=== PATIENT | male | born 1950 | race African-American/Black ===

== ENCOUNTER 2017-02-17 18:26 | Inpatient (IN) | payer OTHER ==
[~2017-02-17] VITALS: Ht 167.6 cm; Wt 82.1 kg
--- NOTE | ~2017-02-17 | EKG ---
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
[~2017-02-17 18:26] MED LIST: ASPIRIN325 PO; FLEXERIL PO; HUMALOG100 UNIT/1; HYDROCHLOROTHIA25 M2 PO; LANTUS SUBQ; NIACIN500 MG PO; NORCO 5-325 TA1 EACH PO; NORVASC10 MG PO; PRINIVIL40 MG PO; VALIUM2 MG PO
[2017-02-17 18:28] VITALS: BP 110/58
[2017-02-17 19:49] LABS: ABSOLUTE NEUTROPHILS 8.9 thou/uL (1.4-8.2); BASOPHILS 0.5 % (0.0-2.0); EOSINOPHILS 0.2 % (0.0-3.0); HEMATOCRIT 41.7 % (42.0-52.0); MANUAL DIFF NO; MCH 30.2 pg (26.0-34.0); MCHC 33.6 g/dL (28.0-37.0); MCV 89.9 fL (80.0-100.0); MONOCYTES 4.8 % (1.0-8.0); PLATELET COUNT 286 thou/uL (150-400); POLYS 81.5 % (36.0-66.0); RBC 4.64 mil/uL (4.50-6.00); RDW 14.1 % (10.5-14.5); WBC 10.9 thou/uL (4.0-11.0)
[2017-02-17 20:02] LABS: ANION GAP 18 mmol/L (7-16); BUN 36 mg/dL (7-18); CALCIUM 9.4 mg/dL (8.5-10.1); CHLORIDE 88 mmol/L (98-107); CO2 24 mmol/L (21-32); CREATININE 1.7 mg/dL (0.7-1.3); POTASSIUM 4.5 mmol/L (3.5-5.1); SODIUM 130 mmol/L (136-145)
[2017-02-17 20:09] LABS: GLUCOSE 582 mg/dL (74-106)
[2017-02-17 20:10] LABS: ALKALINE PHOSPHATASE 96 U/L (46-116); MAGNESIUM 2.4 mg/dL (1.8-2.4); PHOSPHORUS 5.8 mg/dL (2.5-4.9); SGOT 27 U/L (15-37); SGPT 19 U/L (30-65)
[2017-02-17 20:11] LABS: ALBUMIN 3.9 g/dL (3.4-5.0); TOTAL PROTEIN 7.7 g/dL (6.4-8.2)
[2017-02-17 20:16] LABS: TROPONIN-I < 0.04 ng/mL (<0.04-0.07)
[2017-02-17 20:40] LABS: ABG SAMPLE TYPE ARTERIAL; BE(vivo) -0.3 mmol/L (-2 to +3); HCO3 23.3 mmol/L (22.0-26.0); O2(CT) 18.8 mL/dL (15.0-23.0); O2Hb 92.7 % (92.0-98.0); PCO2 35.3 mmHg (35.0-45.0); PO2 76.9 mmHg (80.0-100.0); pH 7.438 (7.360-7.450); sO2 95.9 % (92.0-98.0); tCO2 24.4 mmol/L (24.0-30.0)
[2017-02-17 20:41] LABS: LACTATE 4.05 mmol/L (0.5-2.0); STICK SITE R.RADIAL
[2017-02-17 21:51] LABS: URINE BLOOD NEGATIVE (Negative); URINE COLOR YELLOW; URINE GLUCOSE-RANDOM* 3+ (Negative); URINE KETONES 2+ (Negative); URINE NITRITE NEGATIVE (Negative); URINE PROTEIN (DIPSTICK) NEGATIVE (Negative); URINE SPECIFIC GRAVITY <= 1.005 (1.003-1.035); URINE UROBILINOGEN 0.2 E.U./dl (0.2-1.0)
[2017-02-17 21:54] LABS: ICTOTEST (BILI CONFIRMATORY) Negative (Negative); URINE BILIRUBIN NEGATIVE (Negative)
[2017-02-17 22:15] VITALS: BP 137/53
[2017-02-17 22:33] VITALS: BP 117/64
[2017-02-17 22:57] VITALS: BP 154/76
[2017-02-17 23:55] LABS: CALCIUM 8.9 mg/dL (8.5-10.1); CREATININE 1.7 mg/dL (0.7-1.3); POTASSIUM 3.9 mmol/L (3.5-5.1)
[2017-02-18 00:14] VITALS: BP 117/64
[2017-02-18 06:03] LABS: CALCIUM 8.6 mg/dL (8.5-10.1); CREATININE 1.4 mg/dL (0.7-1.3); MAGNESIUM 2.4 mg/dL (1.8-2.4); POTASSIUM 3.4 mmol/L (3.5-5.1)
[2017-02-18 07:27] VITALS: BP 119/58
[2017-02-18 09:15] VITALS: BP 119/58
[2017-02-18 11:00] VITALS: BP 119/58
[2017-02-19 04:12] LABS: GLYCOHEMOGLOBIN (HGB A1C) 9.3 % (4.8-5.6)
== END 2017-02-18 10:57 | disposition home or self-care (01) | DRG 682 ==
LOC: ER 18:26 → EROBS 21:30 → 2N 21:30
PROVIDERS: Nurse Practitioner Acute Care; Physician Assistant
DX: N17.9 Acute kidney failure, unspecified (principal); E13.10 Other specified diabetes mellitus with ketoacidosis without coma; I10 Essential (primary) hypertension; E78.5 Hyperlipidemia, unspecified; E86.0 Dehydration; I25.10 Atherosclerotic heart disease of native coronary artery without angina pectoris; F17.210 Nicotine dependence, cigarettes, uncomplicated; Z88.8 Allergy status to other drugs, medicaments and biological substances; Z95.5 Presence of coronary angioplasty implant and graft
CPT/HCPCS: 10081

== ENCOUNTER 2017-06-07 18:00 | Emergency (ER) | payer OTHER ==
[~2017-06-07] VITALS: Ht 165.1 cm; Wt 79.8 kg
[2017-06-07] MEDS ORDERED: AFRIN15 ML NASAL (18:45)
[2017-06-07] MEDS ORDERED: CORICIDIN HBP1 EAC1 PO (18:45)
[2017-06-07] MEDS ORDERED: VENTOLIN HFA 1818 GM INH (18:45)
[2017-06-07 20:14] VITALS: BP 141/77
[2018-02-03] MEDS ORDERED: CLEOCIN HCL150 MG PO (11:04)
[2018-02-03] MEDS ORDERED: ULTRAM 50MG TAB50 MG PO (11:04)
[2018-02-04] MEDS ORDERED: ZOFRAN ODT4 MG PO (21:24)
[2018-02-04] MEDS ORDERED: PENICILLIN V P500 MG PO (21:24)
[2018-02-04] MEDS ORDERED: SENNA8.6 MG PO (21:31)
== END 2017-06-07 19:30 | disposition home or self-care (01) ==
LOC: ER 18:00
DX: J40 Bronchitis, not specified as acute or chronic (principal); J00 Acute nasopharyngitis [common cold]; E11.9 Type 2 diabetes mellitus without complications; I10 Essential (primary) hypertension; E78.5 Hyperlipidemia, unspecified; I25.10 Atherosclerotic heart disease of native coronary artery without angina pectoris; Z79.4 Long term (current) use of insulin; Z77.22 Contact with and (suspected) exposure to environmental tobacco smoke (acute) (chronic)

== ENCOUNTER 2017-11-05 09:44 | Emergency (ER) | payer OTHER ==
[~2017-11-05] VITALS: Ht 170.2 cm; Wt 72.6 kg
--- NOTE | ~2017-11-05 | EKG ---
[place] [address] 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 : 1950 Requested By: Laverne Kidd Order Number: [id number] MD: Grant Ramires Measurements Intervals [place] Rate: 102 P: 63 ID: 184 QRS: 43 QRSD: 90 T: 49 QT: 330 QTc: 430 Interpretive Statements Sinus tachycardia Otherwise normal tracing Compared to ECG 02/17/2017 18:34:05 Heart rate has increased Electronically Signed On 11-06-2017 8:07:02 CDT by Grant Ramires [email or web address] <ELECTRONICALLY SIGNED> By: Grant Ramires MD, [facility] 11/06/17 0807 1004 1004 Grant Ramires MD, FACC /EPI
[~2017-11-05 09:44] MED LIST changes: +AFRIN15 ML NASAL; +CORICIDIN HBP1 EAC1 PO; +VENTOLIN HFA 1818 GM INH
[2017-11-05 10:18] LABS: ABSOLUTE NEUTROPHILS 7.3 thou/uL (1.4-8.2); BASOPHILS 0.8 % (0.0-2.0); EOSINOPHILS 0.8 % (0.0-3.0); HEMATOCRIT 42.2 % (42.0-52.0); HEMOGLOBIN 14.3 gm/dL (14.0-18.0); LYMPHOCYTES 17.8 % (24.0-44.0); MCH 30.1 pg (26.0-34.0); MCHC 33.8 g/dL (28.0-37.0); MONOCYTES 2.8 % (1.0-8.0); PLATELET COUNT 275 thou/uL (150-400); POLYS 77.8 % (36.0-66.0); RBC 4.74 mil/uL (4.50-6.00); RDW 13.7 % (10.5-14.5); WBC 9.4 thou/uL (4.0-11.0)
[2017-11-05 10:18] LABS: BE(vivo) -5.8 mmol/L (-2 to +3); HCO3 17.8 mmol/L (22.0-26.0); PCO2 VENOUS 29.9 mmHg (41.0-51.0); PO2 VENOUS 50.4 mmHg (35.0-45.0)
[2017-11-05 10:28] LABS: ANION GAP 16 mmol/L (7-16); BUN 32 mg/dL (7-18); CALCIUM 10.3 mg/dL (8.5-10.1); CHLORIDE 96 mmol/L (98-107); CO2 21 mmol/L (21-32); CREATININE 1.3 mg/dL (0.7-1.3); POTASSIUM 4.6 mmol/L (3.5-5.1); SODIUM 133 mmol/L (136-145)
[2017-11-05 10:33] LABS: LIPASE 73 U/L (73-393); SGOT 24 U/L (15-37); SGPT 21 U/L (30-65); TOTAL BILIRUBIN 0.8 mg/dL (<0.1-1.0); TOTAL PROTEIN 8.1 g/dL (6.4-8.2); TROPONIN-I < 0.04 ng/mL (<0.06)
[2017-11-05 10:34] LABS: GLUCOSE 568 mg/dL (74-106)
[2017-11-05 11:27] LABS: URINE BILIRUBIN NEGATIVE (Negative); URINE BLOOD NEGATIVE (Negative); URINE CLARITY CLEAR; URINE COLOR YELLOW; URINE GLUCOSE-RANDOM* 3+ (Negative); URINE KETONES 1+ (Negative); URINE LEUKOCYTES-REFLEX NEGATIVE (Negative); URINE NITRITE-REFLEX NEGATIVE (Negative); URINE PROTEIN (DIPSTICK) NEGATIVE (Negative); URINE SPECIFIC GRAVITY 1.015 (1.005-1.035); URINE UROBILINOGEN 0.2 E.U./dl (0.2-1.0)
== END 2017-11-05 13:42 | disposition home or self-care (01) ==
LOC: ER 09:44
PROVIDERS: Physician Assistant
DX: E11.65 Type 2 diabetes mellitus with hyperglycemia (principal); E86.0 Dehydration; T67.5XXA Heat exhaustion, unspecified, initial encounter; Z91.14 Patient's other noncompliance with medication regimen; I10 Essential (primary) hypertension; E78.5 Hyperlipidemia, unspecified; I25.10 Atherosclerotic heart disease of native coronary artery without angina pectoris; Z88.8 Allergy status to other drugs, medicaments and biological substances; Z77.22 Contact with and (suspected) exposure to environmental tobacco smoke (acute) (chronic); Z79.4 Long term (current) use of insulin; X30.XXXA Exposure to excessive natural heat, initial encounter

== ENCOUNTER 2018-01-11 15:39 | Emergency (ER) | payer OTHER ==
[~2018-01-11] VITALS: Ht 175.3 cm; Wt 74.8 kg
[2018-01-11] MEDS ORDERED: PENICILLIN V P500 MG PO (15:57)
[2018-01-11] MEDS ORDERED: NORCO 5-325 TA1 EACH PO (15:57)
== END 2018-01-11 16:19 ==
LOC: ER 15:39
DX: K02.9 Dental caries, unspecified (principal); E11.9 Type 2 diabetes mellitus without complications; I10 Essential (primary) hypertension; E78.5 Hyperlipidemia, unspecified; I25.10 Atherosclerotic heart disease of native coronary artery without angina pectoris; Z95.5 Presence of coronary angioplasty implant and graft; Z77.22 Contact with and (suspected) exposure to environmental tobacco smoke (acute) (chronic); Z88.8 Allergy status to other drugs, medicaments and biological substances

== ENCOUNTER 2018-02-24 21:58 | Emergency (ER) | payer OTHER ==
[~2018-02-24] VITALS: Ht 167.6 cm; Wt 77.1 kg
[~2018-02-24 21:58] MED LIST changes: +CLEOCIN HCL150 MG PO; +PENICILLIN V P500 MG PO; +SENNA8.6 MG PO; +ULTRAM 50MG TAB50 MG PO; +ZOFRAN ODT4 MG PO
[2018-02-25] MEDS ORDERED: BENADRYL25 MG PO (00:14)
[2018-02-25] MEDS ORDERED: MEDROLDOSEPACK PO (00:14)
== END 2018-02-25 00:36 | disposition home or self-care (01) ==
LOC: ER 21:58
DX: L50.9 Urticaria, unspecified (principal); E11.9 Type 2 diabetes mellitus without complications; I10 Essential (primary) hypertension; E78.5 Hyperlipidemia, unspecified; I25.10 Atherosclerotic heart disease of native coronary artery without angina pectoris; Z79.4 Long term (current) use of insulin; Z79.899 Other long term (current) drug therapy; Z88.8 Allergy status to other drugs, medicaments and biological substances; Z77.22 Contact with and (suspected) exposure to environmental tobacco smoke (acute) (chronic)

== ENCOUNTER 2018-07-17 04:54 | Emergency (ER) | payer OTHER ==
[~2018-07-17] VITALS: Ht 167.6 cm; Wt 77.6 kg
[~2018-07-17 04:54] MED LIST changes: +BENADRYL25 MG PO; +MEDROLDOSEPACK PO
[2018-07-17 05:28] LABS: ABSOLUTE NEUTROPHILS 6.6 thou/uL (1.4-8.2); BASOPHILS 0.9 % (0.0-2.0); EOSINOPHILS 1.5 % (0.0-3.0); HEMATOCRIT 38.3 % (42.0-52.0); HEMOGLOBIN 12.9 gm/dL (14.0-18.0); LYMPHOCYTES 17.9 % (24.0-44.0); MCH 29.4 pg (26.0-34.0); MCHC 33.6 g/dL (28.0-37.0); MCV 87.3 fL (80.0-100.0); MONOCYTES 6.6 % (1.0-8.0); PLATELET COUNT 234 thou/uL (150-400); POLYS 73.1 % (36.0-66.0); RBC 4.39 mil/uL (4.50-6.00); RDW 13.6 % (10.5-14.5)
[2018-07-17 05:36] LABS: ANION GAP 10 mmol/L (7-16); BUN 17 mg/dL (7-18); CHLORIDE 98 mmol/L (98-107); CO2 28 mmol/L (21-32); CREATININE 0.9 mg/dL (0.7-1.3); GLUCOSE 356 mg/dL (74-106); POTASSIUM 3.6 mmol/L (3.5-5.1); SODIUM 136 mmol/L (136-145)
[2018-07-17 05:45] LABS: ALBUMIN 3.3 g/dL (3.4-5.0); MAGNESIUM 1.9 mg/dL (1.8-2.4); SGOT 16 U/L (15-37); SGPT 12 U/L (30-65); TOTAL BILIRUBIN 0.4 mg/dL (<0.1-1.0); TROPONIN-I <0.06 ng/mL (<0.06)
[2018-07-17 06:18] VITALS: BP 129/72
--- NOTE | 2018-07-17 08:18 | EKG ---
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
== END 2018-07-17 06:18 | disposition home or self-care (01) ==
LOC: ER 04:54
PROVIDERS: Emergency Medicine
DX: R07.89 Other chest pain (principal); I10 Essential (primary) hypertension; E78.5 Hyperlipidemia, unspecified; E11.9 Type 2 diabetes mellitus without complications; I25.10 Atherosclerotic heart disease of native coronary artery without angina pectoris; Z77.22 Contact with and (suspected) exposure to environmental tobacco smoke (acute) (chronic); Z88.8 Allergy status to other drugs, medicaments and biological substances; Z79.4 Long term (current) use of insulin

== ENCOUNTER 2019-05-08 09:31 | Emergency (ER) | payer OTHER ==
[~2019-05-08] VITALS: Ht 172.7 cm; Wt 74.8 kg
[2019-05-08 09:36] VITALS: BP 101/61
[2019-05-08] MEDS ORDERED: CYCLOBENZAPRINE5 MG PO (09:59)
[2019-05-08] MEDS ORDERED: MOBIC15 MG PO (09:59)
== END 2019-05-08 10:21 | disposition home or self-care (01) ==
LOC: ER 09:31
DX: M54.42 Lumbago with sciatica, left side (principal); I25.10 Atherosclerotic heart disease of native coronary artery without angina pectoris; E11.9 Type 2 diabetes mellitus without complications; E78.5 Hyperlipidemia, unspecified; Z79.4 Long term (current) use of insulin; Z95.5 Presence of coronary angioplasty implant and graft; Z77.22 Contact with and (suspected) exposure to environmental tobacco smoke (acute) (chronic); Z88.8 Allergy status to other drugs, medicaments and biological substances

== ENCOUNTER 2019-06-27 11:16 | Emergency (ER) | payer OTHER ==
[~2019-06-27] VITALS: Ht 175.3 cm; Wt 73.0 kg
[~2019-06-27 11:16] MED LIST changes: +CYCLOBENZAPRINE5 MG PO; +MOBIC15 MG PO
[2019-06-27 11:17] VITALS: BP 123/75
[2019-06-27] MEDS ORDERED: PROMETH-CODEIN 65 ML PO (12:00)
[2019-06-27] MEDS ORDERED: PROAIR HFA8.5 GM INH (12:00)
[2019-06-27] MEDS ORDERED: PREDNISONE 20 M20 MG PO (12:00)
== END 2019-06-27 12:10 | disposition home or self-care (01) ==
LOC: ER 11:16
DX: J40 Bronchitis, not specified as acute or chronic (principal); R05 Cough; E11.9 Type 2 diabetes mellitus without complications; I25.10 Atherosclerotic heart disease of native coronary artery without angina pectoris; E78.5 Hyperlipidemia, unspecified; I10 Essential (primary) hypertension; F17.200 Nicotine dependence, unspecified, uncomplicated; Z88.8 Allergy status to other drugs, medicaments and biological substances

== ENCOUNTER 2019-08-27 07:30 | Emergency (ER) | payer OTHER ==
[~2019-08-27] VITALS: Ht 167.6 cm; Wt 77.6 kg
[~2019-08-27 07:30] MED LIST changes: +PREDNISONE 20 M20 MG PO; +PROAIR HFA8.5 GM INH; +PROMETH-CODEIN 65 ML PO
[2019-08-27 08:20] LABS: ABSOLUTE NEUTROPHILS 3.5 thou/uL (1.4-8.2); BASOPHILS 1.7 % (0.0-2.0); EOSINOPHILS 3.7 % (0.0-3.0); HEMATOCRIT 40.9 % (42.0-52.0); HEMOGLOBIN 13.9 gm/dL (14.0-18.0); LYMPHOCYTES 26.9 % (24.0-44.0); MCH 30.7 pg (26.0-34.0); MCHC 33.9 g/dL (28.0-37.0); MCV 90.4 fL (80.0-100.0); MONOCYTES 7.2 % (1.0-8.0); PLATELET COUNT 244 thou/uL (150-400); POLYS 60.5 % (36.0-66.0); RBC 4.53 mil/uL (4.50-6.00); RDW 13.9 % (10.5-14.5); WBC 5.9 thou/uL (4.0-11.0)
--- NOTE | 2019-08-27 08:23 | EKG ---
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
[2019-08-27 08:31] LABS: ANION GAP 8 mmol/L (7-16); BUN 16 mg/dL (7-18); CALCIUM 9.5 mg/dL (8.5-10.1); CHLORIDE 99 mmol/L (98-107); CO2 26 mmol/L (21-32); CREATININE 0.8 mg/dL (0.7-1.3); GLUCOSE 209 mg/dL (74-106); SODIUM 133 mmol/L (136-145)
[2019-08-27 08:34] LABS: POTASSIUM 4.1 mmol/L (3.5-5.1)
[2019-08-27 08:42] LABS: ALBUMIN 3.5 g/dL (3.4-5.0); MAGNESIUM 1.8 mg/dL (1.8-2.4); SGOT 17 U/L (15-37); SGPT 18 U/L (30-65); TOTAL BILIRUBIN 0.6 mg/dL (<0.1-1.0); TOTAL PROTEIN 7.8 g/dL (6.4-8.2); TROPONIN-I <0.06 ng/mL (<0.06)
[2019-08-27] MEDS ORDERED: TESSALON PERLE100 MG PO (08:49)
[2019-08-27] MEDS ORDERED: NAPROSYN500 MG PO (09:01)
[2019-08-27 09:18] VITALS: BP 128/89
== END 2019-08-27 09:20 | disposition home or self-care (01) ==
LOC: ER 07:30
PROVIDERS: Emergency Medicine
DX: J06.9 Acute upper respiratory infection, unspecified (principal); E11.9 Type 2 diabetes mellitus without complications; I25.10 Atherosclerotic heart disease of native coronary artery without angina pectoris; F17.210 Nicotine dependence, cigarettes, uncomplicated; E78.5 Hyperlipidemia, unspecified; I10 Essential (primary) hypertension; Z79.899 Other long term (current) drug therapy; Z79.4 Long term (current) use of insulin; Z95.5 Presence of coronary angioplasty implant and graft

== ENCOUNTER 2020-05-15 08:29 | Emergency (ER) | payer OTHER ==
[~2020-05-15] VITALS: Ht 167.6 cm; Wt 75.8 kg
[~2020-05-15 08:29] MED LIST changes: +NAPROSYN500 MG PO; +TESSALON PERLE100 MG PO
[2020-05-15 10:25] VITALS: BP 155/86
== END 2020-05-15 10:25 | disposition home or self-care (01) ==
LOC: ER 08:29
DX: M79.674 Pain in right toe(s) (principal); I10 Essential (primary) hypertension; E11.9 Type 2 diabetes mellitus without complications; E78.5 Hyperlipidemia, unspecified; I25.10 Atherosclerotic heart disease of native coronary artery without angina pectoris; F17.210 Nicotine dependence, cigarettes, uncomplicated; Z79.899 Other long term (current) drug therapy; Z79.2 Long term (current) use of antibiotics; Z79.4 Long term (current) use of insulin; Z88.8 Allergy status to other drugs, medicaments and biological substances

== ENCOUNTER 2020-07-15 06:02 | Emergency (ER) | payer OTHER ==
[~2020-07-15] VITALS: Ht 165.1 cm; Wt 75.8 kg
[2020-07-15 06:09] VITALS: BP 135/78
[2020-07-15] MEDS ORDERED: PRAVACHOL20 MG PO (06:19)
[2020-07-15] MEDS ORDERED: VITAMIN D21250 MC1 PO (06:20)
[2020-07-15] MEDS ORDERED: AMOXICILLIN875 MG PO (06:28)
[2020-07-15] MEDS ORDERED: NORCO5 PO (06:28)
[2020-07-15] MEDS ORDERED: IBUPROFEN 600600 M1 PO (23:05)
== END 2020-07-15 06:42 | disposition home or self-care (01) ==
LOC: ER 06:02
DX: G89.18 Other acute postprocedural pain (principal); K05.10 Chronic gingivitis, plaque induced; I10 Essential (primary) hypertension; E11.9 Type 2 diabetes mellitus without complications; E78.5 Hyperlipidemia, unspecified; I25.10 Atherosclerotic heart disease of native coronary artery without angina pectoris; F17.210 Nicotine dependence, cigarettes, uncomplicated; Z79.899 Other long term (current) drug therapy; Z79.4 Long term (current) use of insulin; Z88.8 Allergy status to other drugs, medicaments and biological substances

== ENCOUNTER 2020-07-15 22:49 | Emergency (ER) | payer OTHER ==
[~2020-07-15] VITALS: Ht 165.1 cm; Wt 75.8 kg
[~2020-07-15 22:49] MED LIST changes: +AMOXICILLIN875 MG PO; +NORCO5 PO; +PRAVACHOL20 MG PO; +VITAMIN D21250 MC1 PO
[2020-07-15 22:50] VITALS: BP 162/81
[2020-07-15] MEDS ORDERED: IBUPROFEN 600600 M1 PO (23:05)
== END 2020-07-15 23:20 | disposition home or self-care (01) ==
LOC: ER 22:49
DX: K08.89 Other specified disorders of teeth and supporting structures (principal); I10 Essential (primary) hypertension; E11.9 Type 2 diabetes mellitus without complications; E78.5 Hyperlipidemia, unspecified; I25.10 Atherosclerotic heart disease of native coronary artery without angina pectoris; F17.210 Nicotine dependence, cigarettes, uncomplicated; Z79.899 Other long term (current) drug therapy; Z79.2 Long term (current) use of antibiotics; Z79.4 Long term (current) use of insulin; Z88.8 Allergy status to other drugs, medicaments and biological substances

== ENCOUNTER 2020-10-26 15:32 | Emergency (ER) | payer OTHER ==
[~2020-10-26] VITALS: Ht 167.6 cm; Wt 72.6 kg
--- NOTE | ~2020-10-26 | EMS ---
[address] [address] EMS Patient Care Report Name: JESSICA SHORT Room #: [facility]#: [id number] Admission: 10/26/20 Attend Phys: Discharge: Date of : 52 Report #: [id number] THIS REPORT FOR: //name// Report Transmitted: 10/26/2020 16:48 EMS Care Summary [place], [place]/[facility] Incident [id number] @ 10/26/2020 15:05 Incident Location [address] [place] [address] Patient JESSICA SHORT Male, 70 Years 1950 Patient Address [id number] [place] [address] [address] [place] [address] Patient History Diabetes,Hypertension (HTN),Arthritis, Patient Allergies Other drug allergy, Patient Medications Insulin, Chief Complaint PAIN NECK SHOULDER BACK TORSO R SIDE Disposition Transported No Lights/[place] Dispatch Reason Breathing Problem Transported To [facility] Narrative UPON ARRIVAL PT AMBULATORY CONSCIOUS AND ALERT BY THE CURB. PT HAS BEEN HAVING AN INCREASE IN PAIN THAT GOES FROM THE RIGHT SIDE OF HIS NECK THROUGH SHOULDER, [address] [address] EMS Patient Care Report Name: JESSICA SHORT Room #: [facility]#: [id number] Admission: 10/26/20 Attend Phys: Discharge: Date of : 52 Report #: [id number] R SIDE UPPER BACK AND R TORSO. PT HAS BEEN HAVING PAIN FOR ABOUT 4 DAYS. PT STATES HIS BG HAS ALSO BEEN FLUCTUATING IT WAS 590 EARLIER TODAY. PT TRANSPORTED TO [facility] Initial Vitals @15:22P: 90,CO: 0,SpO2: 98, @15:12P: 114,R: 12,BP: 140/95,Pain: 8/10,GCS: 15,Glucose: 131,SpO2: 98,Revised Trauma: 12, @15:23P: 88,R: 12,BP: 135/77,GCS: 15,CO: 1,SpO2: 98,Revised Trauma: 12, Assessments @15:12MENTAL:Person Oriented,Time Oriented,Event Oriented,Place Oriented,SKIN:HEENT:Head/Face: No Abnormalities,Neck/Airway: No Abnormalities,LUNG SOUNDS:General: No Abnormalities,ABDOMEN:General: No Abnormalities,PELVIS//GI:EXTREMITIES:Left Arm: No Abnormalities,Right Arm: No Abnormalities,Left Leg: No Abnormalities,Right Leg: No Abnormalities,PULSE:Radial: 2+ Normal,NEURO:No Abnormalities, Impression Pain (Non-Traumatic) Procedures @15:12ALS AssessmentResponse: UnchangedSucceeded Timeline 15:04,Call Received 15:04,Dispatch Notified 15:05,Dispatched 15:07,En Route 15:10,On Scene 15:10,At Patient 15:12,ALS Assessment,Response: UnchangedSucceeded, 15:12,BP: 140/95 M,PULSE: 114,RR: 12 R,SPO2: 98 Ox,ETCO2: ,B,PAIN: 8,GCS: 15, 15:15,Depart Scene 15:22,BP: / M,PULSE: 90,RR: R,SPO2: 98 Ox,ETCO2: ,BG: ,PAIN: ,GCS: , 15:23,BP: 135/77 M,PULSE: 88,RR: 12 R,SPO2: 98 Ox,ETCO2: ,BG: ,PAIN: ,GCS: 15, 15:35,At Destination 15:42,Call Closed Disclaimer v1.1 Copyright 2020 [employer] This EMS Care Summary contains data elements from the applicable legal record (which may be displayed differently). It is designed to provide pertinent information for the following purposes: continuity of care, clinical quality, and state data reporting. The complete legal record is available to ED staff [address] [address] EMS Patient Care Report Name: JESSICA SHORT Room #: [facility]#: [id number] Admission: 10/26/20 Attend Phys: Discharge: Date of : 52 Report #: [id number] and administrators of the receiving hospital in [employer] Patient Tracker. All data is provided "as is."
[~2020-10-26 15:32] MED LIST changes: +IBUPROFEN 600600 M1 PO
[2020-10-26 16:38] LABS: ABSOLUTE NEUTROPHILS 6.5 thou/uL (1.4-8.2); BASOPHILS 1.4 % (0.0-2.0); EOSINOPHILS 0.8 % (0.0-3.0); HEMATOCRIT 37.8 % (42.0-52.0); HEMOGLOBIN 13.1 gm/dL (14.0-18.0); LYMPHOCYTES 22.4 % (24.0-44.0); MCHC 34.6 g/dL (28.0-37.0); MCV 89.6 fL (80.0-100.0); MONOCYTES 7.5 % (1.0-8.0); PLATELET COUNT 283 thou/uL (150-400); POLYS 67.9 % (36.0-66.0); RBC 4.22 mil/uL (4.50-6.00); WBC 9.5 thou/uL (4.0-11.0)
[2020-10-26 16:46] LABS: ANION GAP 7 mmol/L (7-16); BUN 20 mg/dL (7-18); CALCIUM 9.8 mg/dL (8.5-10.1); CHLORIDE 100 mmol/L (98-107); CO2 30 mmol/L (21-32); CREATININE 1.3 mg/dL (0.7-1.3); GLUCOSE 117 mg/dL (74-106); POTASSIUM 3.6 mmol/L (3.5-5.1); SODIUM 137 mmol/L (136-145)
[2020-10-26 16:56] LABS: ALBUMIN 3.6 g/dL (3.4-5.0); AMYLASE 53 U/L (25-115); DIRECT BILIRUBIN 0.2 mg/dL (<0.1-0.2); LIPASE 39 U/L (73-393); PHOSPHORUS 4.2 mg/dL (2.6-4.7); SGOT 17 U/L (15-37); SGPT 32 U/L (16-63); TOTAL BILIRUBIN 0.7 mg/dL (0.2-1.0); TROPONIN-I <0.06 ng/mL (<0.06)
[2020-10-26] MEDS ORDERED: NAPROXEN250 MG PO (19:04)
[2020-10-26] MEDS ORDERED: VALIUM10 MG PO (19:04)
[2020-10-26] MEDS ORDERED: TYLENOL325 M1 PO (19:04)
[2020-10-26 19:25] VITALS: BP 166/84
--- NOTE | 2020-10-27 08:20 | EKG ---
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
== END 2020-10-26 19:25 | disposition home or self-care (01) ==
LOC: ER 15:32
PROVIDERS: Emergency Medicine
DX: M54.2 Cervicalgia (principal); J43.8 Other emphysema; I10 Essential (primary) hypertension; E11.9 Type 2 diabetes mellitus without complications; F17.210 Nicotine dependence, cigarettes, uncomplicated; E78.5 Hyperlipidemia, unspecified; Z98.890 Other specified postprocedural states; Z88.8 Allergy status to other drugs, medicaments and biological substances

== ENCOUNTER 2021-01-21 02:42 | Emergency (ER) | payer OTHER ==
[~2021-01-21] VITALS: Ht 167.6 cm; Wt 73.5 kg
[~2021-01-21 02:42] MED LIST changes: +NAPROXEN250 MG PO; +TYLENOL325 M1 PO; +VALIUM10 MG PO
[2021-01-21] MEDS ORDERED: FLEXERIL PO (03:52)
[2021-01-21] MEDS ORDERED: PREDNISONE50 MG PO (03:52)
[2021-01-21 04:32] VITALS: BP 141/77
== END 2021-01-21 04:32 | disposition home or self-care (01) ==
LOC: ER 02:42
DX: S39.012A Strain of muscle, fascia and tendon of lower back, initial encounter (principal); E11.9 Type 2 diabetes mellitus without complications; E78.5 Hyperlipidemia, unspecified; I10 Essential (primary) hypertension; I25.10 Atherosclerotic heart disease of native coronary artery without angina pectoris; F17.210 Nicotine dependence, cigarettes, uncomplicated; F12.90 Cannabis use, unspecified, uncomplicated; Z98.890 Other specified postprocedural states; Z79.1 Long term (current) use of non-steroidal anti-inflammatories (NSAID); Z79.891 Long term (current) use of opiate analgesic; Z79.899 Other long term (current) drug therapy; Z79.51 Long term (current) use of inhaled steroids; Z79.4 Long term (current) use of insulin; Z88.1 Allergy status to other antibiotic agents; Z88.8 Allergy status to other drugs, medicaments and biological substances

== ENCOUNTER 2021-05-09 04:44 | Emergency (ER) | payer OTHER ==
[~2021-05-09] VITALS: Ht 167.6 cm; Wt 62.1 kg
[~2021-05-09 04:44] MED LIST changes: +PREDNISONE50 MG PO
[2021-05-09] MEDS ORDERED: NORCO5 PO (05:12)
[2021-05-09] MEDS ORDERED: AUGMENTIN 875-1 EACH PO (05:13)
[2021-05-09 05:50] VITALS: BP 134/76
[2021-05-10] MEDS ORDERED: IBUPROFEN 800800 MG PO (04:27)
== END 2021-05-09 05:50 | disposition home or self-care (01) ==
LOC: ER 04:44
DX: K04.7 Periapical abscess without sinus (principal); E11.9 Type 2 diabetes mellitus without complications; I10 Essential (primary) hypertension; E78.5 Hyperlipidemia, unspecified; I25.10 Atherosclerotic heart disease of native coronary artery without angina pectoris; F17.210 Nicotine dependence, cigarettes, uncomplicated; Z98.890 Other specified postprocedural states; Z79.891 Long term (current) use of opiate analgesic; Z79.899 Other long term (current) drug therapy; Z88.1 Allergy status to other antibiotic agents; Z88.8 Allergy status to other drugs, medicaments and biological substances

== ENCOUNTER 2021-05-10 03:14 | Emergency (ER) | payer OTHER ==
[~2021-05-10] VITALS: Ht 167.6 cm; Wt 62.1 kg
[~2021-05-10 03:14] MED LIST changes: +AUGMENTIN 875-1 EACH PO
[2021-05-10] MEDS ORDERED: IBUPROFEN 800800 MG PO (04:27)
[2021-05-10 04:36] VITALS: BP 143/83
== END 2021-05-10 04:00 | disposition home or self-care (01) ==
LOC: ER 03:14
DX: K04.7 Periapical abscess without sinus (principal); E11.9 Type 2 diabetes mellitus without complications; I10 Essential (primary) hypertension; E78.5 Hyperlipidemia, unspecified; I25.10 Atherosclerotic heart disease of native coronary artery without angina pectoris; F17.210 Nicotine dependence, cigarettes, uncomplicated; Z98.890 Other specified postprocedural states; Z79.891 Long term (current) use of opiate analgesic; Z79.899 Other long term (current) drug therapy; Z79.1 Long term (current) use of non-steroidal anti-inflammatories (NSAID); Z88.1 Allergy status to other antibiotic agents; Z88.8 Allergy status to other drugs, medicaments and biological substances

== ENCOUNTER 2021-07-18 15:33 | Emergency (ER) | payer OTHER ==
[~2021-07-18] VITALS: Ht 167.6 cm; Wt 68.0 kg
[~2021-07-18 15:33] MED LIST changes: +IBUPROFEN 800800 MG PO
[2021-07-18 15:46] VITALS: BP 148/92
[2021-07-18 16:06] LABS: URINE BILIRUBIN NEGATIVE (Negative); URINE BLOOD NEGATIVE (Negative); URINE CLARITY CLEAR; URINE COLOR YELLOW; URINE GLUCOSE-RANDOM* 3+ (Negative); URINE KETONES TRACE (Negative); URINE LEUKOCYTES-REFLEX NEGATIVE (Negative); URINE NITRITE-REFLEX NEGATIVE (Negative); URINE PROTEIN (DIPSTICK) NEGATIVE (Negative)
[2021-07-18 16:24] LABS: HEMATOCRIT 36.9 % (42.0-52.0); HEMOGLOBIN 12.2 gm/dL (14.0-18.0); MCH 29.8 pg (26.0-34.0); MCHC 33.2 g/dL (28.0-37.0); MCV 89.7 fL (80.0-100.0); RBC 4.11 mil/uL (4.50-6.00); RDW 14.9 % (10.5-14.5); WBC 5.9 thou/uL (4.0-11.0)
[2021-07-18 16:55] LABS: CREATININE 1.1 mg/dL (0.7-1.3); POTASSIUM 3.3 mmol/L (3.5-5.1)
[2021-07-18 17:06] LABS: ALBUMIN 3.4 g/dL (3.4-5.0); TOTAL BILIRUBIN 0.3 mg/dL (0.2-1.0); TOTAL PROTEIN 6.8 g/dL (6.4-8.2)
--- NOTE | 2021-07-19 07:50 | EKG ---
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 : 1950 Requested By: Lolly Mathews Order Number: [id number] MD: Grant Ramires Measurements Intervals [place] Rate: 83 P: 39 VT: 186 QRS: 22 QRSD: 78 T: 69 QT: 430 QTc: 506 Interpretive Statements Sinus rhythm Nonspecific T wave abnormality Prolonged QT interval Compared to ECG 10/26/2020 15:46:57 No significant change was found Electronically Signed On 07-19-2021 7:50:14 SECURE SOFTWARE ASSESSOR by Grant Ramires [email or web address] <ELECTRONICALLY SIGNED> By: Grant Ramires MD, [facility] 07/19/21 0750 162 1622 Grant Ramires MD, FACC /EPI
== END 2021-07-18 17:50 | disposition home or self-care (01) ==
LOC: ER 15:33
PROVIDERS: Nurse Practitioner Family
DX: R53.83 Other fatigue (principal); E11.65 Type 2 diabetes mellitus with hyperglycemia; I10 Essential (primary) hypertension; I25.10 Atherosclerotic heart disease of native coronary artery without angina pectoris; E78.5 Hyperlipidemia, unspecified; F17.210 Nicotine dependence, cigarettes, uncomplicated; F12.90 Cannabis use, unspecified, uncomplicated; Z98.890 Other specified postprocedural states; Z79.899 Other long term (current) drug therapy; Z88.1 Allergy status to other antibiotic agents; Z88.8 Allergy status to other drugs, medicaments and biological substances